=== PATIENT | female | born 1990 | race American Indian/Alaskan Native ===

== ENCOUNTER 2017-03-14 00:22 | Emergency (ER) | payer OTHER, MEDICAID ==
[2017-03-14 00:40] VITALS: TEMP 99; BMI 26.2
[2017-03-14] MEDS ORDERED: Lidocaine 1% Inj (20ml) ONE (00:54)
--- NOTE | 2017-03-14 00:57 | ED PDOC ---
Arrival/HPI - General Chief Complaint: Abnormal Skin Integrity Time Seen by Provider: 03/14/17 00:44 Historian: Patient - History of Present Illness Narrative History of Present Illness (Text): 03/14/17 00:44 26 year old female, pmh including pilonoidal abscess, nkda, complaining of rt. buttock abscess x 3 days. Pt. stated that she was seen at the [facility] [place] they attempted to cut and pack but with no abscess, discharge home to do warm compress, stated that the pain has become unbearable with more pain, no fever or chills, no urinary or bowel incontinence or retention, no night sweat, no dizziness, no other medical or psychological complaints. Past Medical History - Provider Review Nursing Documentation Reviewed: Yes - Psychiatric Hx Substance Use: No Family/Social History - Physician Review Nursing Documentation Reviewed: Yes Family/Social History: Unknown Family HX Smoking Status: Never Smoked Hx Alcohol Use: No Hx Substance Use: No Allergies/Home Meds Allergies/Adverse Reactions: Allergies No Known Allergies Allergy (Verified 03/14/17 00:40) Review of Systems - Review of Systems Constitutional: absent: Fatigue, Fevers Eyes: absent: Vision Changes ENT: absent: Hearing Changes Respiratory: absent: SOB, Cough Cardiovascular: absent: Chest Pain Gastrointestinal: absent: Abdominal Pain, Nausea, Vomiting Skin: Rash, Abscess. absent: Pruritis, Skin Lesions, Laceration, Ulcer, Cellulitis Neurological: absent: Headache Physical Exam Vital Signs Reviewed: Yes Vital Signs Temp Pulse Resp BP Pulse Ox 03/14/17 00:40 99 F 113 H 20 135/86 99 Temperature: Afebrile Blood Pressure: Normal Pulse: Tachycardic Respiratory Rate: Normal Appearance: Positive for: Well-Appearing, Non-Toxic, Uncomfortable Pain Distress: Severe Mental Status: Positive for: Alert and Oriented X 3 - Systems Exam Head: Present: Atraumatic, Normocephalic Pupils: Present: PERRL Extroacular Muscles: Present: EOMI Conjunctiva: Present: Normal Mouth: Present: Moist Mucous Membranes Neck: Present: Normal Range of Motion Respiratory/Chest: Present: Clear to Auscultation, Good Air Exchange. No: Respiratory Distress, Accessory Muscle Use Cardiovascular: Present: Regular Rate and Rhythm, Normal S1, S2. No: Murmurs Abdomen: Present: Normal Bowel Sounds. No: Tenderness, Distention, Peritoneal Signs Back: Present: Normal Inspection Upper Extremity: Present: Normal Inspection. No: Cyanosis, Edema Lower Extremity: Present: Normal Inspection. No: Edema Neurological: Present: GCS=15, Speech Normal, Motor Func Grossly Intact, Gait Normal, Memory Normal Skin: Present: Warm, Dry, Rashes (rt. pilonoidal gluteal cheek palpable swelling aprpox. 1yan2uk with visible mild opening incision wound noted from previously. ), Normal Color Psychiatric: Present: Alert, Oriented x 3, Normal Insight, Normal Concentration Medical Decision Making ED Course and Treatment: 03/14/17 01:35 -bedside sonogram performed by de show there is one nodule abscess with superficial scar tissue. -sensation intact, motor 5/5, wound irrigate with normal saline, clean with betadine, 1% lidocaine injected locally approx. 2cc with anesthetic obtained, # 11 blade incision made 1.25cm on the original wound with approx. 40cc of foul smell abscess drained, irrigated with 50cc of normal saline, hemostasis obtained , xerofoam gauze dressing, sensation intact, motor 5/5, less than 3cc of blood loss. -Pt. feels significantly improved after the procedure, clindamycin ordered. -percoceet ordered for pain. -Discharge home with clindamycin, motrin, returen to the ER for wound check and packing change on day 2, keep the dressing and packing dry and clean, follow up with your own pmd and general surgeon within 3 days, return to the ER for any new or worsening signs or symptoms. - Medication Orders Current Medication Orders: Discontinued Medications Lidocaine HCl (Lidocaine 1% (20ml)) Confirm Administered Dose 20 ml .ROUTE .STK- MED ONE Stop: 03/14/17 00:55 Last Admin: 03/14/17 01:14 Dose: Oxycodone/Acetaminophen (Percocet 5/325 Mg Tab) 1 tab PO STAT STA Stop: 03/14/17 01:14 - PA / PATIENT REGISTRATION MANAGER / Resident Statement / has reviewed & agrees with the documentation as recorded. Disposition/Present on Arrival - Present on Arrival Any Indicators Present on Arrival: No History of DVT/PE: No History of Uncontrolled Diabetes: No Urinary Catheter: No History of Decub. Ulcer: No History Surgical Site Infection Following: None - Disposition Have Diagnosis and Disposition been Completed?: Yes Diagnosis: Abscess Disposition: HOME/ ROUTINE Disposition Time: 00:57 Patient Plan: Discharge Condition: IMPROVED Additional Instructions: Discharge home with clindamycin, motrin, returen to the ER for wound check and packing change on day 2, keep the dressing and packing dry and clean, follow up with your own pmd and general surgeon within 3 days, return to the ER for any new or worsening signs or symptoms. Prescriptions: Clindamycin [Cleocin] 300 mg PO QID #40 cap Ibuprofen [Motrin Tab] 800 mg PO TID PRN #21 tab PRN Reason: Other Referrals: [facility] at [facility] [place] [facility] [place] - Follow up with primary Lucio Kendrick MD [Staff Provider] - Follow up with primary Forms: [facility] (Malawian), WORK NOTE
[2017-03-14] MEDS ORDERED: Oxycodone/Acetaminophen 5/325 mg Tab PO STA (01:13)
[2017-03-14 01:50] VITALS: BP 127/70; PULSE 91; RESP 16; O2SAT 98
== END 2017-03-14 01:47 | disposition home or self-care (01) ==
LOC: MERGE 00:22 → ED 00:22
DX: L02.31 Cutaneous abscess of buttock (principal)

== ENCOUNTER 2017-03-16 09:42 | Emergency (ER) | payer OTHER, MEDICAID ==
[2017-03-16 09:42] VITALS: BMI 26.2
[2017-03-16 09:50] VITALS: TEMP 98.9
--- NOTE | 2017-03-16 10:13 | ED PDOC ---
Arrival/HPI - General Chief Complaint: Abnormal Skin Integrity Time Seen by Provider: 03/16/17 10:01 Historian: Patient - History of Present Illness Narrative History of Present Illness (Text): 03/16/17 10:09 26yo female present in ED for packing removal. She had a Pilonidial abscess that was I & D here 2days ago. Came to ED today for the packing removal. Currently on antibiotics. denies fever, chills, any other complaint. Past Medical History - Provider Review Nursing Documentation Reviewed: Yes - Psychiatric Hx Substance Use: No Family/Social History - Physician Review Nursing Documentation Reviewed: Yes Family/Social History: Unknown Family HX Smoking Status: Never Smoked Hx Alcohol Use: No Hx Substance Use: No Allergies/Home Meds Allergies/Adverse Reactions: Allergies No Known Allergies Allergy (Verified 03/16/17 09:51) Review of Systems - Physician Review All systems were reviewed & negative as marked: Yes - Review of Systems Constitutional: Normal Eyes: Normal ENT: Normal Respiratory: Normal Cardiovascular: Normal Gastrointestinal: Normal Genitourinary Female: Normal Musculoskeletal: Normal Skin: Other (PAcking removal) Neurological: Normal Endocrine: Normal Hemo/Lymphatic: Normal Psychiatric: Normal Physical Exam Vital Signs Reviewed: Yes Vital Signs Temp Pulse Resp BP Pulse Ox 03/16/17 09:47 98.9 F 77 18 106/71 98 Temperature: Afebrile Blood Pressure: Normal Pulse: Regular Respiratory Rate: Normal Appearance: Positive for: Well-Appearing, Non-Toxic, Comfortable Pain Distress: None Mental Status: Positive for: Alert and Oriented X 3 - Systems Exam Head: Present: Atraumatic, Normocephalic Pupils: Present: PERRL Extroacular Muscles: Present: EOMI Conjunctiva: Present: Normal Mouth: Present: Moist Mucous Membranes Neck: Present: Normal Range of Motion Respiratory/Chest: Present: Clear to Auscultation, Good Air Exchange. No: Respiratory Distress, Accessory Muscle Use Cardiovascular: Present: Regular Rate and Rhythm, Normal S1, S2. No: Murmurs Abdomen: Present: Normal Bowel Sounds. No: Tenderness, Distention, Peritoneal Signs Back: Present: Normal Inspection Upper Extremity: Present: Normal Inspection. No: Cyanosis, Edema Lower Extremity: Present: Normal Inspection. No: Edema Neurological: Present: GCS=15, CN II-XII Intact, Speech Normal Skin: Present: Warm, Dry, Normal Color, Other (Dressing noted in place on right sided buttocks cleft. No erythema. No sign of infection noted). No: Rashes Psychiatric: Present: Alert, Oriented x 3, Normal Insight, Normal Concentration Medical Decision Making ED Course and Treatment: 03/16/17 10:11 Packing removed and wound dressed. Pt advised to keep wound clean and dry. Referred to her PMD. TRT ED for any new or worsening symptoms. Disposition/Present on Arrival - Present on Arrival Any Indicators Present on Arrival: No History of DVT/PE: No History of Uncontrolled Diabetes: No Urinary Catheter: No History of Decub. Ulcer: No History Surgical Site Infection Following: None - Disposition Have Diagnosis and Disposition been Completed?: Yes Diagnosis: Abscess packing removal Disposition: HOME/ ROUTINE Disposition Time: 10:15 Patient Plan: Discharge Condition: STABLE Discharge Instructions (ExitCare): Acute Wound Care (ED) Additional Instructions: Follow up with your Doctor return to ED for any new or worsening symptoms Referrals: [facility] at [facility] [place] [Outside] - Follow up with primary
[2017-03-16 10:36] VITALS: BP 108/72; PULSE 75; RESP 17; O2SAT 99
== END 2017-03-16 10:40 | disposition home or self-care (01) ==
LOC: ED 09:42 → MERGE 09:42 → ED 10:40
DX: Z48.00 Encounter for change or removal of nonsurgical wound dressing (principal)

== ENCOUNTER 2018-08-11 00:48 | Emergency (ER) | payer OTHER, MEDICAID ==
[2018-08-11 00:49] VITALS: BMI 29.0
[2018-08-11 01:27] VITALS: BP 110/54; TEMP 98.3
--- NOTE | 2018-08-11 01:53 | ED PDOC ---
Arrival/HPI - General Chief Complaint: Abnormal Skin Integrity Time Seen by Provider: 08/11/18 01:39 Historian: Patient - History of Present Illness Narrative History of Present Illness (Text): 08/11/18 01:52 Anahi Amezcua is a 28 year old female, whose past medical history includes 2 incision and drainages with packing, who presents to the Emergency department complaining of an abscess to right buttock for the past few days. Patient states she has had similar symptoms twice in the past in the same area, had I&D's with packing placed, and discharged home. Patient denies any fever, chills, back pain, neck pain, headache, dizziness, or any other complaints. Symptom Onset: Gradual Symptom Course: Unchanged Activities at Onset: Light Context: Home Past Medical History - Provider Review Nursing Documentation Reviewed: Yes - Infectious Disease Hx of Infectious Diseases: None - Psychiatric Hx Substance Use: No - Anesthesia Hx Anesthesia: No Family/Social History - Physician Review Nursing Documentation Reviewed: Yes Family/Social History: Unknown Family HX Smoking Status: Never Smoked Hx Alcohol Use: No Hx Substance Use: No Allergies/Home Meds Allergies/Adverse Reactions: Allergies No Known Allergies Allergy (Verified 08/11/18 01:27) Review of Systems - Physician Review All systems were reviewed & negative as marked: Yes - Review of Systems Constitutional: Normal. absent: Fevers Eyes: Normal ENT: Normal Respiratory: Normal. absent: SOB, Cough Cardiovascular: Normal. absent: Chest Pain Gastrointestinal: Normal. absent: Abdominal Pain, Diarrhea, Nausea, Vomiting Genitourinary Female: Normal. absent: Dysuria, Frequency, Hematuria, Urine Output Changes Musculoskeletal: Normal. absent: Back Pain, Neck Pain Skin: Abscess Neurological: Normal. absent: Headache, Dizziness Endocrine: Normal Hemo/Lymphatic: Normal Psychiatric: Normal Physical Exam Vital Signs Reviewed: Yes Vital Signs Temp Pulse Resp BP Pulse Ox 08/11/18 01:25 98.3 F 113 H 20 110/54 L 97 Temperature: Afebrile Blood Pressure: Normal Pulse: Regular Respiratory Rate: Normal Appearance: Positive for: Well-Appearing, Non-Toxic, Comfortable Pain Distress: None Mental Status: Positive for: Alert and Oriented X 3 - Systems Exam Head: Present: Atraumatic, Normocephalic Pupils: Present: PERRL Extroacular Muscles: Present: EOMI Conjunctiva: Present: Normal Mouth: Present: Moist Mucous Membranes Neck: Present: Normal Range of Motion Respiratory/Chest: Present: Clear to Auscultation, Good Air Exchange. No: Respiratory Distress, Accessory Muscle Use Cardiovascular: Present: Regular Rate and Rhythm, Normal S1, S2. No: Murmurs Abdomen: No: Tenderness, Distention, Peritoneal Signs Back: Present: Normal Inspection Upper Extremity: Present: Normal Inspection. No: Cyanosis, Edema Lower Extremity: Present: Normal Inspection. No: Edema Neurological: Present: GCS=15, CN II-XII Intact, Speech Normal Skin: Present: Warm, Dry, Normal Color, Abscess (Small non-fluctuant area of erythema to right buttock). No: Rashes Psychiatric: Present: Alert, Oriented x 3, Normal Insight, Normal Concentration Medical Decision Making ED Course and Treatment: 08/11/18 01:52 Impression: 28 year old female complaining of right buttock abscess. Plan: -- Augmentin -- Reassess and disposition Progress Notes: 08/11/18 02:30 Procedure: Incision & Drainage Performed by the emergency provider Indication: Abscess Location: Right buttock Preparation: The area was prepped and draped in the usual sterile fashion and was cleansed with Betadyne. Local infiltration of Lidocaine 1% was used for anesthesia. Gagandeep Oneill present as vibrator equipment tester Procedure: The most fluctuant portion of the abscess was incised with a #11 scalpel. The abscess was packed with quarter-inch gauze. A dressing was applied by the RN. Post-Procedure: On exam the abscess is notably less fluctuant. The patient tolerated the procedure well, and there were no complications. Cultured: No On re-evaluation, patient feels better and is in no acute distress. I have discussed plan with the patient, who expresses understanding. Patient in agreement with plan to be discharged home. Patient is stable for discharge. Patient was instructed to follow up with physician or return if symptoms worsen or new concerning symptoms arise. - Scribe Statement The provider has reviewed the documentation as recorded by the Gagandeep Jeronimo Provider Scribe Attestation: All medical record entries made by the Scribe were at my direction and personally dictated by me. I have reviewed the chart and agree that the record accurately reflects my personal performance of the history, physical exam, medical decision making, and the department course for this patient. I have also personally directed, reviewed, and agree with the discharge instructions and disposition. Disposition/Present on Arrival - Present on Arrival Any Indicators Present on Arrival: No History of DVT/PE: No History of Uncontrolled Diabetes: No Urinary Catheter: No History of Decub. Ulcer: No History Surgical Site Infection Following: None - Disposition Have Diagnosis and Disposition been Completed?: Yes Diagnosis: Abscess of buttock, right Disposition: HOME/ ROUTINE Disposition Time: 03:00 Condition: GOOD Discharge Instructions (ExitCare): Abscess Incision and Drainage, Boil (DC) Additional Instructions: return 48 hrs for drain removal Prescriptions: Amoxicillin 875 mg PO BID #20 tab Referrals: Baron Zepeda MD [Staff Provider] - Follow up with primary Forms: [facility] (French)
[2018-08-11] MEDS ORDERED: Amoxicillin-Clav 875-125 mg Tab PO STA (02:03)
[2018-08-11] MEDS ORDERED: Lidocaine 1% 5ml Abboject ONE (02:14)
[2018-08-11 02:49] VITALS: PULSE 81; RESP 18; O2SAT 99
== END 2018-08-11 03:11 | disposition home or self-care (01) ==
LOC: ED 00:48
DX: L02.31 Cutaneous abscess of buttock (principal)

== ENCOUNTER 2018-08-12 13:27 | Emergency (ER) | payer OTHER, MEDICAID ==
[2018-08-12 13:58] VITALS: RESP 18; BMI 28.3
[2018-08-12] MEDS ORDERED: Acetaminophen 650mg/20.3ml solution UD PO STA (14:45)
--- NOTE | 2018-08-12 15:00 | ED PDOC ---
Arrival/HPI - General Historian: Patient - History of Present Illness Narrative History of Present Illness (Text): 08/12/18 14:58 28 yo female with PMhx of recurrent R buttocks abscess requiring 2 I&Ds with packing in the past presents to the ED for removal of pa cking from I&[place] performed [place] [facility] [place] ago. Denies any fevers/chills, back pain, neck pain, headache, dizziness, or any other complaints. Time/Duration: Prior to Arrival Symptom Onset: Sudden Symptom Course: Unchanged Activities at Onset: Light <Pascual Hickman - Last Filed: 08/12/18 17:46> <Demetra Deutsch - Last Filed: 08/12/18 18:08> - General Chief Complaint: Abnormal Skin Integrity Time Seen by Provider: 08/12/18 13:36 Past Medical History - Provider Review Nursing Documentation Reviewed: Yes - Infectious Disease Hx of Infectious Diseases: None - Cardiac Hx Cardiac Disorders: No - Psychiatric Hx Substance Use: No - Anesthesia Hx Anesthesia: No <Pascual Hickman - Last Filed: 08/12/18 17:46> Family/Social History - Physician Review Nursing Documentation Reviewed: Yes Family/Social History: Unknown Family HX Smoking Status: Never Smoked Hx Alcohol Use: No Hx Substance Use: No <Pascual Hickman - Last Filed: 08/12/18 17:46> Allergies/Home Meds <Pascual Hickman - Last Filed: 08/12/18 17:46> <Demetra Deutsch - Last Filed: 08/12/18 18:08> Allergies/Adverse Reactions: Allergies No Known Allergies Allergy (Verified 08/12/18 13:54) Review of Systems - Physician Review All systems were reviewed & negative as marked: Yes - Review of Systems Constitutional: Normal Eyes: Normal ENT: Normal Respiratory: Normal Cardiovascular: Normal Gastrointestinal: Normal Genitourinary Female: Normal Musculoskeletal: Normal Skin: Abscess Neurological: Normal Endocrine: Normal Hemo/Lymphatic: Normal Psychiatric: Normal <Pascual Hickman - Last Filed: 08/12/18 17:46> Physical Exam Vital Signs Reviewed: Yes Vital Signs Temp Pulse Resp BP Pulse Ox 08/12/18 13:55 100.0 F H 129 H 18 103/67 96 Temperature: Afebrile Blood Pressure: Normal Pulse: Tachycardic Respiratory Rate: Normal Appearance: Positive for: Well-Appearing, Non-Toxic Pain Distress: Mild Mental Status: Positive for: Alert and Oriented X 3 - Systems Exam Head: Present: Atraumatic, Normocephalic Pupils: Present: PERRL Extroacular Muscles: Present: EOMI Conjunctiva: Present: Normal Mouth: Present: Moist Mucous Membranes Neck: Present: Normal Range of Motion Respiratory/Chest: Present: Clear to Auscultation, Good Air Exchange. No: Respiratory Distress, Accessory Muscle Use, Wheezes, Rales, Rhonchi Cardiovascular: Present: Regular Rate and Rhythm, Normal S1, S2 Abdomen: Present: Normal Bowel Sounds. No: Tenderness, Distention, Rebound, Guarding, Mass/Organomegaly Upper Extremity: Present: Normal Inspection, Normal ROM, NORMAL PULSES, Capillary Refill < 2s. No: Cyanosis, Edema Lower Extremity: Present: Normal Inspection, NORMAL PULSES, Capillary Refill < 2 s. No: Edema, CALF TENDERNESS Neurological: Present: CN II-XII Intact, Speech Normal Skin: Present: Warm, Dry, Normal Color. No: Rashes, Erythematous, Abscess Psychiatric: Present: Alert, Oriented x 3, Normal Insight, Normal Concentration <Pascual Hickman - Last Filed: 08/12/18 17:46> Vital Signs Temp Pulse Resp BP Pulse Ox 08/12/18 16:30 99.7 F H 90 18 101/55 L 99 08/12/18 15:56 92 H 18 101/55 L 99 08/12/18 13:55 100.0 F H 129 H 18 103/67 96 <Demetra Deutsch - Last Filed: 08/12/18 18:08> Medical Decision Making ED Course and Treatment: 08/12/18 15:07 Impression: 28 yo F with past medical history of recurrent R buttocks abscess requiring I&D returning to ED for removal of packing inserted 2 days ago s/p I&D procedure Plan: --packing removed --monitor and dispo 08/12/18 15:10 Patient in no acute distress, vitals wnl No erythema, purulence, fluctuance noted Patient stable for discharge, to follow up with surgery outpatient regarding recurrence of abscess formation To continue antibiotics as prescribed from last ED visit - Medication Orders Current Medication Orders: Discontinued Medications Acetaminophen (Tylenol 650mg/20.3ml Solution Ud) 975 mg PO STAT STA Stop: 08/12/18 14:46 <Pascual Hickman - Last Filed: 08/12/18 17:46> ED Course and Treatment: 08/12/18 15:16 Patient is a 28 year old female presenting to the emergency department complaining of right buttock abscess. In agreement with resident note. Patient was seen and evaluated with resident, came up with plan and treatment together. - Medication Orders Current Medication Orders: Discontinued Medications Acetaminophen (Tylenol 650mg/20.3ml Solution Ud) 975 mg PO STAT STA Stop: 08/12/18 14:46 Last Admin: 08/12/18 14:55 Dose: 975 mg MAR Pain/Vitals Document 08/12/18 14:55 MEGAN (Rec: 08/12/18 14:56 SZTerrence [id number]) Pain Reassessment Is This A Pain ReAssessment? No Sleep Is patient sleeping during reassessment? No Presence of Pain Presence of Pain Yes Pain Scale Used Protocol: PSCALES Pain Scale Used Numeric <Demetra Deutsch - Last Filed: 08/12/18 18:08> - PA / PROGRAM DIRECTOR/MORNING SHOW HOST / Resident Statement MD/DO has reviewed & agrees with the documentation as recorded. MD/DO has examined the patient and agrees with the treatment plan. - Scribe Statement The provider has reviewed the documentation as recorded by the Gagandeep Garcia All medical record entries made by the Scribe were at my direction and personally dictated by me. I have reviewed the chart and agree that the record accurately reflects my personal performance of the history, physical exam, medical decision making, and the department course for this patient. I have also personally directed, reviewed, and agree with the discharge instructions and disposition. <Demetra Deutsch - Last Filed: 08/12/18 18:08> Disposition/Present on Arrival - Present on Arrival Any Indicators Present on Arrival: No History of DVT/PE: No History of Uncontrolled Diabetes: No Urinary Catheter: No History of Decub. Ulcer: No History Surgical Site Infection Following: None - Disposition Have Diagnosis and Disposition been Completed?: Yes Disposition Time: 17:47 <Pascual Hickman - Last Filed: 08/12/18 17:46> <Demetra Deutsch - Last Filed: 08/12/18 18:08> - Disposition Diagnosis: Wound check, abscess, Abscess after procedure Disposition: HOME/ ROUTINE Condition: STABLE Discharge Instructions (ExitCare): Skin Abscess, Wound Care (DC) Additional Instructions: GEORGIE QUIROGA, thank you for letting us take care of you today. Your provider was Demetra Deutsch MD and you were treated for abscess. The emergency medical care you received today was directed at your acute symptoms. If you were prescribed any medication, please fill it and take as directed. It may take several days for your symptoms to resolve. Return to the Emergency Department if your symptoms worsen, do not improve, or if you have any other problems. Please contact your doctor or call one of the physicians/clinics you have been referred to that are listed on the Patient Visit Information form that is incl uded in your discharge packet. Bring any paperwork you were given at discharge with you along with any medications you are taking to your follow up visit. Our treatment cannot replace ongoing medical care by a primary care provider outside of the emergency department. Thank you for allowing the [facility] team to be part of your care today. Referrals: Lucio Kendrick MD [Staff Provider] - Follow up with primary Forms: [employer] (Belgian)
[2018-08-12 15:58] VITALS: BP 101/55; O2SAT 99
[2018-08-12 17:34] VITALS: PULSE 90; TEMP 99.7
== END 2018-08-12 16:30 | disposition home or self-care (01) ==
LOC: ED 13:27
DX: Z48.817 Encounter for surgical aftercare following surgery on the skin and subcutaneous tissue (principal)